=== PATIENT | female | born 1970 ===

== ENCOUNTER 2025-03-06 09:50 | Inpatient (IN) | payer OTHER ==
[~2025-03-06] VITALS: Ht 172.7 cm; Wt 61.8 kg
[2025-03-06 12:22] VITALS: BP 97/69
[2025-03-06 12:47] VITALS: BP 97/69
--- NOTE | 2025-03-06 13:29 | NUR ---
ADMIT PT DENIES SI, HI, TACTILE HALLUCINATIONS. ENDORSES A SUICIDE ATTEMPT "LONG TIME AGO" WHERE PT ROLLED OFF THE [place], BUT SURVIVED THE ATTEMPT AND BROKE HER HAND. PT ENDORSES FEELING HOPELESS AND ANHEDONIA. PT ENDORSES AUDITORY AND VISUAL HALLUCINATIONS, DESCRIBES THE VISUAL "I SEE FACES" AND AUDITORY HALLUCINATIONS IS "OBAMA, HE TELLS ME THINGS FROM WHEN I WAS YOUNGER. THEY'RE NICE". DENIES COMMAND HALLUCINATIONS. PT STATES SHE HAS NOT TAKEN HER MEDICATIONS FOR "A MONTH". PT INITIALLY DENIES HX OF ALCOHOLISM TILL MENTIONING IT WAS IN HER CHART AND DENIES METHAMPHETAMINE USE. PT IS DISTRACTIBLE, BUT REDIRECTIBLE. NO OTHER ACUTE EVENTS AT THIS TIME.
--- NOTE | 2025-03-06 14:10 | NUR ---
ASSUMED CARE OF PATIENT FROM IVANNA ZAMARRIPA. PT RESTING IN HER ROOM ON HER BED, APPEARS TO BE SLEEPING.
[2025-03-06] MEDS ORDERED: Polyethylene Glycol 3350 17 gm PO PRN (15:45)
[2025-03-06] MEDS ORDERED: Aluminum Hydroxide 320MG/5ML 473 ML PO PRN (15:50)
[2025-03-06] MEDS ORDERED: FLU VACC TS2025-26(6MOS UP)/PF 45 MCG/0.5 ML SYRINGE IM SCH (15:50)
[2025-03-06] MEDS ORDERED: Ondansetron 4 MG SoluTab MM PRN (15:55)
--- NOTE | 2025-03-06 18:08 | NUR ---
PT ATTENDED DINNER AND RETURNED TO HER ROOM. NO ACUTE CHANGES TO NOTE FROM PREVIOUS PALEOLOGY TEACHER NOTE. MONITORED WITH Q 15 MIN CHECKS FOR SAFETY PER UNIT PROTCOL.
[2025-03-06 20:00] VITALS: BP 115/71
--- NOTE | 2025-03-06 20:24 | NUR ---
MASS SCORE FOR PRN: PATIENT C/O ANXIETY EVIDENCED BY 3 ON MASS SCORE, STATED "TODAY HAS BEEN HARD". SHE REQUESTED AND WAS GIVEN VISTARIL. CONTINUING TO MONITOR FOR EFFECTIVENESS.
--- NOTE | 2025-03-06 21:25 | NUR ---
PRN GIVEN: PATIENT REQUESTED AND WAS GIVEN A SECOND TRAZODONE AT 6 FOR C/O FIRST TRAZODONE NOT EFFECTIVE/INSOMNIA. CONTINUING TO MONITOR FOR EFFECTIVENESS.
--- NOTE | 2025-03-07 00:32 | NUR ---
PRN MEDICATION ADMINISTRATION: PATIENT CAME TO MEDICATION WINDOW AT 0023 C/O BACK AND NECK PAIN 10/03. SHE REQUESTED AND WAS GIVEN TYLENOL. CONTINUING TO MONITOR FOR EFFECTIVENESS.
--- NOTE | 2025-03-07 02:14 | NUR ---
MASS SCORE FOR PRN ADMINISTRATION: PATIENT GOT UP AND REQUESTED A VISTARIL FOR "ANXIETY". MASS SCORE OF 1. PATIENT WAS GIVEN VISTARIL 50 MG PO PRN AT 2009. CONTINUING TO MONITOR FOR EFFECTIVENESS.
--- NOTE | 2025-03-07 04:18 | NUR ---
SHIFT SUMMARY: PATIENT IS A 54 YEAR OLD FEMALE ADMITTED TO THE [facility] ON 03/06/25 FROM [facility] FOR A DIAGNOSIS OF PSYCHOSIS. SHE PRESENTS FAIRLY GROOMED, A AND O X4, SPEAKS IN A MODERATE TONE OF VOICE AND MAKES APPROPRIATE EYE CONTACT. SHE DESCRIBED HER MOOD "ANXIOUS". SHE DENIED SUICIDAL IDEATION, THOUGHTS OF SELF HARMING AND A/V/T HALLUCINATIONS. SHE ADMITTED TO "ANXIETY, IT'S BEEN A HARD DAY". SHE WAS LYING IN BED RESTING, BUT DID GET UP FOR SNACK AND WRAP UP GROUP. SHE REQUESTED TRAZODONE AND VISTARIL FOR INSOMNIA AND ANXIETY. THEY WERE GIVEN TOGETHER WITH DR PERMISSION. HER MASS SCORE WAS 3 AT THAT TIME. SHE WENT TO LIE DOWN BUT GOT UP AT 2116 AND REQUESTED A SECOND TRAZODONE, WHICH WAS GIVEN. SHE THEN RESTED UNTIL 0023, WHEN SHE REQUESTED TYLENOL FOR BACK AND NECK PAIN 10/03. SHE CONTINUED TO BE UP AND DOWN THROUGHOUT THE SHIFT, STATING, "I HAVEN'T SLEPT IN THREE WEEKS". SHE GOT UP AT 0210 AND REQUESTED VISTARIL, WHICH WAS GIVEN FOR A MASS SCORE OF 1. SHE GOT UP SHORTLY AFTER THAT AND REQUESTED ATIVAN FOR SLEEP. SHE WAS TOLD SHE DOES NOT HAVE AN ORDER AND WANTED THE DR TO COME OVER AND GIVE HER SOME. SHE WAS TOLD THAT THE DR WILL BE AVAILABLE TO TALK IN THE MORNING AND THAT HER REQUEST WOULD BE PASSED ON IN REPORT. SHE GOT UP AGAIN AND REQUESTED NICORETTE GUM. SHE WAS TOLD THAT SHE HAS THE PATCH AND CAN ONLY HAVE ONE OR THE OTHER, AND THAT THE ORDER CAN BE CHANGED SO SHE CAN HAVE THE GUM. SHE STATED THAT SHE DID NOT WANT TO GIVE UP GETTING THE PATCH AND "NEVER MIND". SHE CONTINUES TO BE MONITORED Q15 MINUTES FOR SAFETY.
[2025-03-07 07:36] LABS: CHOL/HDL RATIO 3.9; Cholesterol 162 mg/dL (50-200); HDL Cholesterol 42 mg/dL (>39); LDL/HDL RATIO 2.1; Low Density Lipoprotein Chol 89 mg/dL (0-110); Triglycerides 157 mg/dL (30-160); Very Low Density Lipoprot Chol 31 mg/dL (6-32)
[2025-03-07 08:05] VITALS: BP 97/66
[2025-03-07] MEDS ORDERED: Multivitamins 1 Tab PO SCH (09:00)
--- NOTE | 2025-03-07 09:43 | NUR ---
SHIFT ASSESSMENT: PT DENIED SI AND HI, SHE ENDORSED AUDITORY HALUCINATIONS, "THE EAGLES SONG...YOUR LYIN' EYES...KEEPS PLAYING IN MY HEAD." PT REPORTED ANXIETY 7/10w, "PROBABLY BECAUSE I DIDN'T SLEEP." SHE REPORTED PAIN TO HER NECK AND BACK 4/10w. SHE DESCRIBED HER MOOD , "I'M OK." HER GOALS ARE: "TO GAIN CONTROL OF MY LIFE, REGULATE MY SLEEP AND STOP THE RINGING IN MY EARS.. PT HAS BEEN ACTIVE IN THE PT MILIEU AND GROUPS.
--- NOTE | 2025-03-08 01:15 | NUR ---
PRN NOTE. PT AWOKE AT 0100 AND REQUESTED PRN TRAZODONE. PT WAS GIVEN MELATONIN AT BED TIME AND WAS ABLE TO SLEEP A FEW HOURS. TRAZODONE GIVEN WITH EDUCATION AND TOLD THAT ANOTHER DOSE OF MED WOULD NOT BE GIVEN THIS WAS THE LATEST THAT THE MED COULD BE GIVEN. PT VERBALIZED WITH "OK" AND WENT TO BED. WILL MONITOR FOR EFFECTIVENESS OF PRN GIVEN.
--- NOTE | 2025-03-08 01:47 | NUR ---
PT APPEARS TO BE SLEEPING AT THIS TIME. EVEN RESPIRATIONS WITH RISE AND FALL OF CHEST. WILL CONTINUE Q 15 MIN CHECKS ON PT.
--- NOTE | 2025-03-08 04:59 | NUR ---
SHIFT SUMMARY:. PT A/O X4. DENIES SI, HI AND AVTH. ON PREVIOUS SHIFT SHE HAD AUDITORY HALLCINATIONS, BUT SHE HAS RINGING IN HER EARS AT THIS TIME, "I JUST WANT THE RINGING TO STOP." AXIETY LEVEL 9/10. OFFERED MEDICATION TO HELP HER,BUT SHE DECLINED. MOOD " I'M OK" AFFECT FLAT. WENT TO GROUP AND SNACK TONIGHT, PT REQUESTED MELATONIN FOR SLEEP TONIGHT, PT WOKE UP AND THEN REQUESTED TRAZODONE. THIS WAS AT 0100. TRAZODONE GIVEN ON REQUEST, PT WENT BACK TO BED AND HAS SLEPT WELL WITH THE AIDE OF THE MEDICATION. WILL CONTINUE TO MONITOR Q 15 MIN FOR WELLNESS AND SAFETY.
--- NOTE | 2025-03-08 17:45 | NUR ---
SHIFT SUMMARY PT DENIES SI, HI, VTH. ENDORSES AUDITORY HALLUCINATIONS "STATIC IN MY RIGHT EAR". ENDORSES FEELING "GOOD" D/T GETTING SLEEP. PT ATE MEALS, BUT OTHERWISE SLEPT/RESTED QUIETLY T/O DAY, DID NOT INTERACT W/ PEERS, BUT MADE A JOKE W/ THIS RN DURING ASSESSMENT. NO ACUTE EVENTS.
[2025-03-08 19:11] VITALS: BP 104/70
--- NOTE | 2025-03-08 21:38 | NUR ---
DR TRUONG CALLED AND CHECKED ON PT. HE WILL START HER ON ABILIFY TONIGHT. PT REQUESTED TRAZADONE AND MELATONIN FOR SLEEP. TRAZODONE GIVE EARLIER AND THEN PT CAME TO AT THAT IT ISN'T WORKING AND REQUESTED THE MELATONIN. WILL CONTINUE TO MONITOR Q 15 MIN FOR SAFETY AND WELLNESS.
--- NOTE | 2025-03-09 03:55 | NUR ---
PT AWAKENED AND CAME TO GET VISTARIL FOR COMPLAINT OF ANXIOUSNESS AND RESTLESSNESS. GIVEN NEDICATION, EDUCATED ON MEDICATION WITH VERBAL RETURN OF " I KNOW". PT RETURNED BACK TO BED. WILL CONTINUE TO MONITOR Q 15 MIN FOR WELLNESS AND SAFETY.
--- NOTE | 2025-03-09 04:01 | NUR ---
SHIFT SUMMARY: PT A/O X4. DENIES SI HI AND AVTH. MOOD QUITE AND "OK" PER PT. AND AFFECT FLAT. VOICE LOW IN TONE. PT MORE CALM AND DID OPEN UP MORE ON HER INTERVIEW. STATES SHE IS TIRED AND FEELS BETTER TONIGHT. REFUSED TO COME OUT TO GROUP AND SNACK TONIGHT. ANXIETY 10/03. REQUESTED TRAZODONE FOR BED TIME SLEEP AIDE. HAS BEEN IN BED THIS WHOLE SHIFT OTHER THAN FOR MEDS. WILL CONTINUE TO MONITOR Q 15 MIN FOR WELLNESS AND SAFETY.
[2025-03-09 09:26] VITALS: BP 99/65
--- NOTE | 2025-03-09 16:29 | NUR ---
SHIFT SUMMARY NO ACUTE EVENTS TODAY. PT DENIES SI, HI, VTH. ENDORSES AUDITORY HALLUCINATIONS, BUT STATES THEY ARE "BETTER THAN BEFORE" AND ONLY HEARS STATIC IN THE RIGHT EAR. PT ENDORSES MOOD BEING "BETTER" D/T CONTINUING TO GET GOOD SLEEP. WATCHED TV IN GROUP ROOM THIS AM, BUT OTHERWISE HAS SLEPT/RESTED QUIETLY OUTSIDE OF MEALS.
[2025-03-09 19:28] VITALS: BP 106/65
--- NOTE | 2025-03-10 05:37 | NUR ---
SHIFT SUMMARY Pt is A&O, calm, cooperative, polite, appropriately dressed, eye contact is appropriate. Pt stated that her mood is "okay," affect euthymic. Pt denies SI, HI, visual, and tactile hallucinations; she endorses auditory hallucination of "buzzing" in her right ear. Pt denies current pain or other medical issues. Pt presents much brighter in affect today and has engaged in full conversations with this RN and other staff members during the evening. Pt was present on the milieu during the evening. She requested PRN trazodone for sleep prior to retiring. Pt approached the nurse station at about 2045 and requested PRn melatonin, as she was still awake after taking trazodone. She asked for a second trazodone at about 0215 as well as a PRN hydroxyzine for MASS score 2. Staff continues to monitor q15m for safety and wellness.
[2025-03-10 08:10] VITALS: BP 91/72
--- NOTE | 2025-03-10 17:18 | NUR ---
SHIFT SUMMARY: PT IS ALERT, ORIENTED AND COOPERATIVE WITH CARE. SHE APPEARS FAIRLY WELL GROOMED, HAS APPROPRIATE EYE CONTACT AND A EUTHYMIC AFFECT. SHE DENIES SI AND HI. STATES THAT SHE IS NOT CURRENTLY HAVING VISUAL HALLUCINATIONS BUT STATES HISTORY OF. STATES THAT SHE HAS "BUZZING" THAT IS "ALWAYS THERE". SHE STATES THAT SHE SLEPT "OK" UNTIL 0200 AND HAS BEEN AWAKE SINCE. REPORTS 7/10 ANXIETY AND REQUESTED VISTARIL. SHE WAS MEDICATED PER EMAR FOR MASS SCORE OF 3. SHE REPORTED RELIEF FROM THE ANXIETY. SHE WAS ACTIVE ON THE UNIT, ATTENDED GROUPS AND MEALS. SHE SPENT TIME RESTING IN HER ROOM AND WATCHING TV IN THE DAY ROOM WITH PEERS AND STAFF.
[2025-03-10 20:51] VITALS: BP 107/69
--- NOTE | 2025-03-11 05:20 | NUR ---
SHIFT SUMMARY Pt is A&O, calm, cooperative, polite, appropriately dressed, eye contact is appropriate. Pt stated that her mood is "okay," affect constricted. Pt denies SI, HI, visual, and tactile hallucinations; she continues to endorse auditory hallucination of buzzing in her right ear. Pt denies current pain or other medical issues. Pt spent most of the evening resting in her room, but came out for snack and meds. She requested PRN melatonin at 1999 for sleep prior to retiring to her room. At 2044 pt requested PRN trazodone. Pt remained in her room for the rest of the shift. At Staff continues to monitor q15m for safety and wellness.
[2025-03-11 07:40] VITALS: BP 94/64
--- NOTE | 2025-03-11 17:24 | NUR ---
SHIFT ASSESSMENT PT IS AA&O TO PERSON, PLACE, SITUATION AND TIME. SHE IS COOPERATIVE WITH CARE. PT IS FRIENDLY AND ANSWERS QUESTIONS APPROPRIATELY. EYE CONTACT IS LIMITED. HYGEINE IS ADEQUATE. APPETITE IS GOOD. SHE IS COMPLIANT WITH MEDICATIONS AND DENIES ANY ADVERSE EFFECTS. SHE DENIES SI, AVH. SHE HAS BEEN UP FOR GROUPS AND MEALS. SHE REPORTS HER MOOD GOOD, AFFECT IS GAURDED. SHE REPORTS SHE SLEPT OKAY BUT WOKE UP A "COUPLE TIMES" SHE IS INTERACTING WELL WITH PEERS AND STAFF. NO PRN MEDICATION ADMINISTERED THIS SHIFT. WILL CONTINUE POC
[2025-03-11 19:55] VITALS: BP 116/82
--- NOTE | 2025-03-12 04:24 | NUR ---
SHIFT SUMMARY PT IS A&OX4. SHE IS PLEASANT AND COOPERATIVE WITH CARE. SHE REPORTS HER MOOD "OK". SHE IS CALM AND ENGAGED WITH CONVERSATION. DENIES ANY SI, HI OR VTH. SHE REPORTS AUDITORY HALLUCINATIONS, STATES "I HEAR STATIC". SHE WATCHED TV IN THE GROUP ROOM, ATTENDED WRAP UP GROUP AND HAD EVENING SNACK. SHE RECEIVED PRN MELATONIN AND TRAZODONE AND WENT TO BED SHORTLY AFTER SNACK. SHE HAS REMAINED IN BED THROUGHOUT THE NIGHT. Q15 MINUTE CHECKS TO CONTINUE PER PT SAFETY.
[2025-03-12 07:37] VITALS: BP 96/66
--- NOTE | 2025-03-12 18:10 | NUR ---
SHIFT SUMMARY PT A/O X4; PLEASANT AND COOPERATIVE WITH CARE. SHE DENIES SI, HI, AVTH. PT SAID THAT SHE WAS HEARING STATIC IN HER EARS YESTERDAY BUT IT IS GONE TODAY. SHE DESCRIBES HER MOOD "GOOD" AND HER AFFECT IS BLUNTED. SHE EXPRESSED CONCERN ABOUT HAVING DIFFICULTY SLEEPING. SHE ATTENDED ALL GROUPS AND MEALS THIS SHIFT. SHE CONTINUES TO BE MONITORED Q15 PER UNIT PROTOCOL FOR SAFETY AND WELLNESS.
[2025-03-12 19:41] VITALS: BP 103/63
--- NOTE | 2025-03-13 04:36 | NUR ---
SHIFT SUMMARY PT IS A&OX4. SHE IS CALM, COOPERATIVE AND ENGAGED WITH CONVERSATION. MAKES APPROPRIATE EYE CONTACT. REPORTS HER MOOD "GOOD". AFFECT IS CONGRUENT TO STATED MOOD. DENIES ANY SI, HI OR AVTH. SHE ATTENDED WRAP UP GROUP AND HAD EVENING SNACK. SHE WAS COMPLIANT WITH SCHEDULED MEDS. SHE REQUESTED AND RECEIVED IBUPROFEN FOR ARTHRITIS PAIN IN BILATERAL HIPS, RATED AT 6/10 WITH GOOD AFFECT. PT ALSO RECEIVED PRN MELATONIN TO ASSIST WITH SLEEP. SHE WENT TO BED AFTER SNACK AND HAS REMAINED IN BED THROUGHOUT THE NIGHT. Q15 MINUTE CHECKS TO CONTINUE PER PT SAFETY.
[2025-03-13 07:57] VITALS: BP 103/70
--- NOTE | 2025-03-13 16:58 | NUR ---
PATIENT WOKE AT 0700. SHE STATES THAT SHE HAD A GOOD NIGHT SLEEP. THE INCREASE TRAZODONE WAS EFFECTIVE AND SHE DENIES SIDE EFFECTS. PATIENT HAS A DISHEVELED APPEARANCE BUT IS CLEAN. SHE HOLD LOGICAL CONVERSATION AND IS DENYING ALL HALLUCINATIONS. ShE DENIES SI, HI. PATIENT HAS BEEN PARTICIPATING ON THE UNIT AND IN GROUPS WITH PEERS. SHE HAS NO CONCERNS AT THIS TIME.
[2025-03-13 19:40] VITALS: BP 119/66
--- NOTE | 2025-03-14 04:17 | NUR ---
SHIFT SUMMARY PT WITH MESSY, UNWASHED HAIR. PT PACING THE HALLS AND SPENT TIME IN MILIEU WATCHING TV. SHE IS CALM AND COOPERATIVE. MAKES APPROPRIATE EYE CONTACT. REPORTS HER MOOD "GOOD". SHE HAS A BLUNTED AND FLAT AFFECT. DENIES ANY SI, HI, INTRUSIVE THOUGHTS OR ANY HALLUCINATIONS. NO INTERNAL STIMULI NOTED. SHE HAD EVENING SNACK, ATTENDED WRAP UP GROUP AND WAS COMPLIANT WITH MEDS. SHE REQUESTED AND RECEIVED PRN IBUPROFEN FOR 7/10 BILATERAL HIP PAIN AND MELATONIN TO ASSIST WITH SLEEPING. SHE WENT TO BED AFTER RECEIVING MEDS AND HAS APPEARED TO SLEEP WELL WITH RESPIRATIONS CONFIRMED. Q15 MINUTE CHECKS TO CONTINUE PER PT SAFETY.
[2025-03-14 08:36] VITALS: BP 102/65
--- NOTE | 2025-03-14 16:50 | NUR ---
Patient is alert and orientated. Today, she participated during groups and was social with Peers. She believes medications are working as she was ablet o distinguish that her nightmare about conspiracy was a dream and not real. She denies Auditory, visual and tactile hallucination. She is not having any thoughts of suicide or self harm. Anxiety appears at times and she used a PRN hydroxyzine this afternoon to aleveate the anxiety. She requested a number for the [facility] so she could inquire about warrants. She was provided the number, however will have to call Monday as they are closed for the weekend. There is not a set discharge date yet, but the provider believes she will dc sometime next week.
[2025-03-14 20:17] VITALS: BP 107/66
--- NOTE | 2025-03-15 04:12 | NUR ---
SHIFT SUMMARY PATIENT UP IN MILIEU ALTERNATING FREQUENTLY WITH WATCHING MOVIE AND PACING IN THE BECK. ABLE TO HOLD CLEAR AND CONCISE CONVERSATION. VERBALIZED FEELING ANXIOUS, HYDROXYZINE GIVEN FOR MASS 3. DENIES SI, HI, OR AVTH. AT 2035 IBUPROFEN GIVEN FOR 8/10 HIP PAIN, WITH GOOD RESULTS. MELATONIN GIVEN WITH SCHEDULED DOSE OF TRAZODONE FOR SLEEP. PATIENT SLEEPING WELL T/O NIGHT RESP EVEN AND UNLABORED. CONTINUE TO MONITOR Q15MIN
[2025-03-15 08:41] VITALS: BP 108/67
--- NOTE | 2025-03-15 17:34 | NUR ---
SHIFT SUMMARY: PT HAS A RING IN PLACE ON HER L 4TH FINGER. PT IS ALERT, ORIENTED AND COOPERATIVE WITH CARE. SHE DENIES SI, HI AND AVH. STATES THAT SHE SLEPT WELL LAST NIGHT AND HER MOOD IS "GOOD". SHE APPEARS WELL GROOMED AND HAS APPROPRIATE EYE CONTACT. SHE IS COMPLIANT WITH MEDICATIONS AND ENGAGED IN CONVERSATION. SHE C/O INCREASED ANXIETY OF 7/10 IN THE AM AFTER BREAKFAST. SHE WAS MEDICATED WITH PRN VISTARIL PER EMAR FOR MASS SCORE OF 3 AND REPORTED GOOD RELIEF SYMPTOMS SHE WAS MEDICATED FOR C/O 7/10 BILATERAL KNEE PAIN AND WAS MEDICATED WITH IBUPROFEN PRN PER EMAR. SHE REPORTED RELIEF FROM THE PAIN UPON REASSESSMENT. PT C/O FEELING "JITTERY" "RESTLESS" AND "UNABLE TO SIT STILL". REPEAT AIMS ASSESSMENT COMPLETED AND REMAINS NEGATIVE. SHE LATER REPORTED THAT THEY SYMPTOMS HAD RESOLVED, SHE WOULD LIKE TO WAIT TO TAKE THE INJECTION UNTIL TOMORROW AFTER SHE SPEAKS WITH THE DOCTOR. DR. FUNG HAS BEEN UPDATED ON INITIAL C/O AND RESOLUTION OF SYMPTOMS. SHE C/O INCREASED ANXIETY IN THE AFTERNOON OF 07/04 AND WAS MEDICATED WITH VISTARIL PRN PER EMAR FOR MASS SCORE OF 3. PT WAS PRESENT ON THE UNIT, ATTENDED MEALS AND GROUPS. SHE SPENT TIME WALKING IN THE HALLS AND IN THE DAY ROOM WATCHING TV.
[2025-03-15 19:57] VITALS: BP 93/62
--- NOTE | 2025-03-16 05:15 | NUR ---
SHIFT SUMMARY 54 YEAR-OLD FEMALE PRESENTS WELL GROOMED. SHE IS ALERT AND ORIENTED. SHE SPEAKS IN A CLEAR VOICE AND IN AN APPROPRIATE VOLUME. SHE IS ABLE TO MAKE AND KEEP EYE CONTACT DURING CONVERSATIONS. AT THE TIME OF HER ASSESSMENT, SHE DESCRIBED HER MOOD "CALM". SHE ALSO DENIED SI, HI, AND AVTH AT THAT TIME. SHE ATTENDED SNACK AND DAY ROOM. SHE WAS COMPLIANT WITH CARE AND MEDICATION ADMINISTRATION. SHE RECEIVED THE FOLLOWING PRN MEDICATIONS: MELATONIN 3MG FOR SLEEP AT 2044 AND IBUPROFEN 600 MG FOR 8/10 BILATERAL KNEE PAIN. SHE CONTINUES TO BE MONITORED EVERY 15 MINUTES FOR WELLNESS AND SAFETY.
--- NOTE | 2025-03-16 05:15 | NUR ---
PRN NOTE PATIENT RECEIVED THE FOLLOWING PRN MEDICATIONS DURING PRECISION PRINTING WORKER: MELATONIN 3MG FOR SLEEP AT 4 AND IBUPROFEN 600 MG FOR 8/10 BILATERAL KNEE PAIN.
[2025-03-16 08:54] VITALS: BP 103/64
[2025-03-16] MEDS ORDERED: ARIPiprazole 300 MG SUSER.SYR IM SCH (12:00)
--- NOTE | 2025-03-16 16:28 | NUR ---
SHIFT SUMMARY: PT HAS A RING IN PLACE ON HER L 4TH FINGER. PT IS ALERT, ORIENTED AND COOPERATIVE WITH CARE. SHE DENIES SI, HI AND AVH. SHE APPEARS WELL GROOMED, HAS APPROPRIATE EYE CONTACT AND A EUTHYMIC AFFECT. SHE IS COMPLIANT WITH MEDICATIONS AND ENGAGED IN CONVERSATION. STATES THAT SHE SLEPT WELL UNTIL AROUND 0430. C/O ANXIETY THAT SHE RATES AT 8/10. PROVIDED WITH PRN VISTARIL PER EMAR FOR MASS SCORE OF 3. IN THE AFTERNOON SHE C/O BILATERAL HIP PAIN AND WAS MEDICATED WITH IBUPROFEN PRN PER EMAR WHICH SHE REPORTED GOOD RELIEF FROM AFTER. PT WAS PRESENT FOR MEALS AND GROUP TODAY. WAS ACTIVE IN THE MILIEU, WALKING IN THE HALLS AND WATCHING TV IN THE DAY ROOM.
[2025-03-16 20:19] VITALS: BP 104/64
--- NOTE | 2025-03-17 05:01 | NUR ---
SHIFT SUMMARY 54 YEAR-OLD FEMALE PRESENTS WELL GROOMED. SHE IS ALERT AND ORIENTED. SHE SPEAKS IN A CLEAR VOICE AND IN AN APPROPRIATE VOLUME. SHE IS ABLE TO MAKE AND KEEP EYE CONTACT DURING CONVERSATIONS. AT THE TIME OF HER ASSESSMENT, SHE DESCRIBED HER MOOD "ANXIOUS MAINLY WHEN I THINK ABOUT DISCHARGING." SHE ALSO DENIED SI, HI, AND AVTH AT THAT TIME. SHE ATTENDED SNACK AND DAY ROOM. SHE WAS COMPLIANT WITH CARE AND MEDICATION ADMINISTRATION. SHE RECEIVED THE FOLLOWING PRN MEDICATIONS: MELATONIN 3MG FOR SLEEP AT 2045 AND IBUPROFEN 600 MG FOR 7/10 HIP PAIN. SHE ALSO RECEIVED HER ANNUAL FLU VACCINE. SHE CONTINUES TO BE MONITORED EVERY 15 MINUTES FOR WELLNESS AND SAFETY.
--- NOTE | 2025-03-17 05:03 | NUR ---
PRN NOTE PATIENT RECEIVED THE FOLLOWING PRN MEDICATIONS DURING FIELD CROPS HARVEST MACHINE OPERATOR: MELATONIN 3MG FOR SLEEP AT 6 AND IBUPROFEN 600 MG FOR 7/10 HIP PAIN.
[2025-03-17 08:58] VITALS: BP 98/69
--- NOTE | 2025-03-17 15:50 | NUR ---
NURSE NOTE PT PACING THE HALLWAYS AND FEELS SHE IS GETTING ANXIOUS. MASS=1, PT REQUESTED A PRN HYDROXYZINE. PT MEDICATED FOR ANXIETY.
--- NOTE | 2025-03-17 18:24 | NUR ---
SHIFT SUMMARY PT WAS CALM, COOPERATIVE, AND EUTHYMIC THIS SHIFT. DENIES AVTH. SHE WAS MEDICATION COMPLIANT. PT WAS GIVEN ONE HYDROXYZINE PRN FOR C/O ANXIETY WITH A MASS=1. SHE JOINED GROUPS AND WAS ACTIVE IN THE GROUP ROOM WHEN SHE WAS NOT PACING THE HALLWAYS. PT DID NOT HAVE ANY ACUTE BEHAVIOR TO REPORT.
[2025-03-17 20:16] VITALS: BP 111/73
--- NOTE | 2025-03-17 23:23 | NUR ---
MID SHIFT SUMMARY: PT HAD UNEVENTFUL EVENING. PARTICIPATED IN SNACK AND THEN WENT TO BED. HAS BEEN SLEEPING WITHOUT INTERRUPTION SINCE THEN. DURING ASSESSMENT SHE SPOKE OF FEELING RELIEF TODAY WHEN SHE "FOUND OUT I WASN'T FACING A FELONY CHARGE." SHE STATES SHE WAS NOT GETTING ANY SLEEP PREVIOUSLY AND "ACTED OUT BY BEING STUPID" AND "GOT A BUNCH OF CHARGES." DENIES ANY SI, AH, VH. COOPERATIVE WITH STAFF, ENGAGED IN PROCESS.
--- NOTE | 2025-03-18 00:12 | NUR ---
ASSUMPTION OF CARE ASSUMED CARE OF PATIENT FROM MARILOU BHAKTA AT MIDNIGHT. SHE IS CURRENTLY RESTING QUIETLY IN HER BED. NO SIGNS OF ACUTE DISTRESS NOTED. SHE RECEIVED TO FOLLOWING PRN MEDICATIONS PRIOR IN THE SHIFT: IBUPROFEN 600MG FOR PAIN AT 2020, MELATONIN 3MG FOR SLEEP AT 2020. CONTINUES TO BE MONITORED EVERY 15 MINUTES FOR WELLNESS AND SAFETY.
--- NOTE | 2025-03-18 04:30 | NUR ---
END OF SHIFT SUMMARY PATIENT HAS SLEPT SINCE THIS DEPARTMENT HELPER ASSUMED CARE AT MIDNIGHT. NO PRN MEDICATIONS WERE UTILIZED. PATIENT DOES NOT SEEM TO BE IN ANY ACUTE DISTRESS. CONTINUES TO BE MONITORED EVERY 15 MINUTES FOR WELLNESS AND SAFETY.
[2025-03-18 07:27] VITALS: BP 108/58
--- NOTE | 2025-03-18 17:32 | NUR ---
PATIENT IS ALERT AND ORIENTATED. SHE HAS CLEAR SPEECH AND A GROOMED APPEARANCE. PATIENT DENIES SUICIDAL THOUGHTS. SHE DENIES ALL HALLUCINATIONS AT THIS TIME. sHE STATES THAT ONCE IN A WHILE, WHEN ANXIETY INCREASES SHE WILL HERE STATIC- IT DOESN'T LAST LONG HOWEVER. PATIENTS COGNITION APPEARS TO BE BASED IN REALITY. SHE IS AWARE OF HER LEGALS AND WHEN SPEAKING OF FUTURE COURT DATES, SPEECH BECOMES QUICK AND EYES WIDE. SHE IS ANTICIPATING NEXT WEEK FOR DISCHARGE.
[2025-03-18 19:15] VITALS: BP 108/69
--- NOTE | 2025-03-19 04:25 | NUR ---
SHIFT SUMMARY PT IS A 54-Y/O FEMALE WHO PRESENTS ADEQUATELY GROOMED. SHE IS ALERT AND ORIENTED. SHE SPEAKS IN A CLEAR VOICE AND APPROPRIATE VOLUME. SHE MAKES APPROPRIATE EYE CONTACT. REPORTS HER MOOD "I'M OKAY". AFFECT IS CONGRUENT TO STATED MOOD. SHE DENIES ANY SI, HI OR AVTH. WHEN QUESTIONED REGARDING IF SHE IS HEARING ANY MORE STATIC, SHE REPORTS SHE THINKS IT IS JUST TINNITUS. SHE WAS PRESENT IN MILIEU, ATTENDED WRAP UP GROUP AND HAD EVENING SNACK. SHE WAS COMPLIANT WITH MEDICATIONS AND REQUESTED AND RECEIVED PRN MELATONIN TO ASSIST WITH SLEEP AND IBUPROFEN FOR REPORTED 6/10 BILATERAL HIP PAIN. PT HAS BEEN IN BED THROUGHOUT THE NIGHT. Q15 MINUTE CHECKS TO CONTIUE PER PT SAFETY.
[2025-03-19 09:23] VITALS: BP 102/59
--- NOTE | 2025-03-19 16:25 | NUR ---
Patient has clear speech. She is alert and orientated, denying thoughts of suicide/homicide. She states that she is not having any hallucinations. She reports a ringing in her ears on occasion. Patient is looking forward to discharge next week. She used a PRN hydroxyzine earlier in the shift, for anxiety that comes from being in a group. She has no other concerns.
[2025-03-19 20:12] VITALS: BP 103/65
--- NOTE | 2025-03-20 04:24 | NUR ---
SHIFT SUMMARY PT IS A 54-Y/O FEMALE WHO PRESENTS ADEQUATELY GROOMED. SHE IS ALERT AND ORIENTED, CALM AND ENGAGED. SPEECH IS FLUENT WITH MODERATE VOLUME. SHE MAKES APPROPRIATE EYE CONTACT. REPORTS HER MOOD "MELLOW". AFFECT IS EUTHYMIC. SHE DENIES ANY SI, HI OR AVTH. DENIES ANY CURRENT RINGING IN HER EARS. SHE WAS PRESENT IN MILIEU, HAD EVENING SNACK AND WAS COMPLIANT WITH MEDICATIONS. SHE REQUESTED AND RECEIVED PRN MELATONIN TO ASSIST WITH SLEEP AND IBUPROFEN FOR REPORTED 6/10 BILATERAL HIP PAIN. SHE HAS REMAINED IN BED THROUGHOUT THE NIGHT. Q15 MINUTE CHECKS TO CONTINUE PER PT SAFETY.
[2025-03-20 09:23] VITALS: BP 103/62
--- NOTE | 2025-03-20 17:15 | NUR ---
SHIFT SUMMARY PT PRESENTS ALERT AND ORIENTED WITH GOOD EYE CONTACT, CLEAR SPEECH WITH NORMAL TONE AND GOOD HYGIENE. SHE IS CALM, COOPERATIVE AND COMPLIANT WITH MEDICATION. ASKS APPROPRIATE QUESTIONS REGARDING MEDICATIONS. PT HAS DENIED ALL SI/HI/AVH. SHE SPENT A LOT OF TIME PACING THE HALLWAY WITH PEERS AND HAS BEEN VERY ENGAGED WITH THEM AND THE MILIEU SHE WENT OUTSIDE TO THE [place] WHEN IT WAS OPENED UP THIS AFTERNOON AND SHE AND PEERS THREW RUBBER BALLS AROUND, APPEARED TO HAVE FUN. PT HAS RECEIVED Q15 MINUTE VISUAL SAFETY CHECKS THROUGHOUT THIS SHIFT.
[2025-03-20 19:31] VITALS: BP 99/68
--- NOTE | 2025-03-20 23:59 | NUR ---
PT IS BRIGHT AND ANIMATED AT THE BEGINNING OF THE SHIFT, SHE IS SMILING AND TALKATIVE, SHARED THAT SHE MADE A PHONE CALL TO HER FAMILY, EXPRESSED HAPPINESS WITH THIS. PT MAKING GOALS AND PLANS, DISCUSSED DISCHARGE NEXT WEEK. SHE IS INTERACTIVE WITH THE MILIEU, WATCHING TV AND VISITING WITH STAFF AND PATIENTS. DENIES ANY SI/HI AVH. SHE REPORTS SHE DIDN'T SLEEP WELL LAST NIGHT, SHE IS HOPEFUL TONIGHT SHE CAN SLEEP BETTER, SHE REQUESTS NIGHT TIME MEDICATIONS AFTER SNACK, SHE ALSO REQUESTS MOTRIN FOR HIP PAIN AND MELATONIN FOR SLEEP, THIS WAS GIVEN, PT APPEARS TO BE RESTING AT THIS TIME, MEDICATION APPEARS TO HAVE BEEN EFFECTIVE.
--- NOTE | 2025-03-21 04:03 | NUR ---
Assumed care at 2400 from MARILOU Vences. Patient has been resting quietly with equal chest rise and fall. She did wake slightly when her roommate got out of bed early, but appeared to have gone back to sleep.
[2025-03-21 09:07] VITALS: BP 100/68
--- NOTE | 2025-03-21 17:08 | NUR ---
SHIFT SUMMARY TODAY, PT PRESENTS WITH GOOD HYGIENE, SHE IS ALERT AND ORIENTED WITH GOOD EYE CONTACT, CLEAR SPEECH WITH NORMAL TONE. SHE CONTINUES TO BE CALM AND COOPERATIVE, COMPLIANT WITH MEDICATION. PT HAS BEEN VERY ENGAGED WITH HER PEERS TODAY AND MILIEU INVOLVEMENT. APPROX 1100 PT APPROACHED RN STATION ASKING FOR VISTARIL, STATED 6/10 ANXIETY "I'M SPINNING IN THE HEAD", MASS SCORE OF 3. AT 1600 SHE REQUESTED SOMETHING MORE FOR HER "SPINNING HEAD". ZYPREXA GIVEN, MASS SCORE 4. SHE HAS DENIED SI/HI. THIS SPINNING HEAD SHE DECRIBES IS NOT VOICES. IT'S A BUZZING, SPINNING FEELING AND IS NEW TO THIS RN SINCE YESTERDAY'S SHIFT. SHE IS ACTIVELY PARTICIPATING IN MEALS/GROUPS. PT HAS CONTINUED TO RECEIVE Q15 MINUTE VISUAL SAFETY CHECKS THROUGHOUT THIS SHIFT.
[2025-03-21 20:42] VITALS: BP 111/68
--- NOTE | 2025-03-22 04:46 | NUR ---
PRN NOTE PATIENT RECEIVED THE FOLLOWING PRN MEDICATIONS DURING PIE FILLING MIXER: IBUPROFEN 600MG FOR 7/10 HIP PAIN AT 2052, MELATONIN 3MG FOR SLEEP AT 2052
--- NOTE | 2025-03-22 04:46 | NUR ---
SHIFT SUMMARY 54 YEAR-OLD FEMALE PRESENTS WELL GROOMED. SHE IS ALERT AND ORIENTED. SHE SPEAKS IN A CLEAR VOICE AND IN AN APPROPRIATE VOLUME. SHE IS ABLE TO MAKE AND KEEP EYE CONTACT DURING CONVERSATIONS. AT THE TIME OF HER ASSESSMENT, SHE DESCRIBED HER MOOD HOPEFUL . SHE ALSO DENIED SI, HI, AND AVTH AT THAT TIME. SHE ATTENDED SNACK AND DAY ROOM. SHE WAS COMPLIANT WITH CARE AND MEDICATION ADMINISTRATION. SHE RECEIVED THE FOLLOWING PRN MEDICATIONS: IBUPROFEN 600MG FOR 7/10 HIP PAIN AT 2052, MELATONIN 3MG FOR SLEEP AT 2052. SHE CONTINUES TO BE MONITORED EVERY 15 MINUTES FOR WELLNESS AND SAFETY.
[2025-03-22 08:14] VITALS: BP 97/77
--- NOTE | 2025-03-22 17:38 | NUR ---
SHIFT SUMMARY PT DENIES SI ,HI, VTH. ENDORSES "QUIET STATIC". PT STATES MOOD IS "GOOD" AND HAS BEEN SLEEPING "BETTER". PT ATTENDED GROUPS/MEALS. INTERACTING W/ OTHER PT'S AND STAFF. NO OTHER ACUTE EVENTS TODAY.
[2025-03-22 22:30] VITALS: BP 103/63
--- NOTE | 2025-03-23 06:16 | NUR ---
SHIFT SUMMARY Pt is A&O, calm, cooperative, polite, appropriately dressed, eye contact is appropriate. Pt stated that her mood is "pretty good," affect is constricted. Pt denies SI, HI, VH, TH. She endorses AH of "static, more like an electronic tinkle," but says it is easy to ignore. Pt endorses hip and knee pain 7/10w and requested PRN ibuprofen with her HS meds. During the interview she said that her dad is allowing her to move in with him after discharge and she is very happy about that. Pt was active on the milieu during the evening. Pt requested PRN melatonin with HS meds to help her sleep. Pt was up to nurse station at about 0435 and asked for PRN olanzapine for agitation; MASS-4. Staff continues to monitor q15m for safety and wellness.
[2025-03-23 08:47] VITALS: BP 80/56
[2025-03-23 08:50] VITALS: BP 92/62
--- NOTE | 2025-03-23 08:59 | NUR ---
UPDATE PT C/O OF DIZZINESS AND REQUIRED ASSISTANCE TO THE FLOOR BEFORE FALLING, DID NOT LOSE CONSCIOUSNESS. PT WAS DIAPHORETIC, PALLOROUS, AND HYPOTENSIVE. DR FUNG NOTIFIED W/ ORDERS FOR HOSPITALIST CONSULT. DR SHELTON NOTIFIED. PT STATED, "I FEEL FINE NOW" AFTER SECOND BLOOD PRESSURE CHECK PER KORTNEY ZAMARRIPA.
[2025-03-23] MEDS ORDERED: NS 1,000 ML IV SCH (09:30)
[2025-03-23 10:00] LABS: BASOPHILS ABSOLUTE AUTO 0.11 K/mm3 (0.00-0.23); BASOPHILS PERCENT AUTO 1 % (0-2); EOSINOPHILS ABSOLUTE AUTO 0.31 K/mm3 (0.00-0.68); EOSINOPHILS PERCENT AUTO 4 % (0-6); Hematocrit 38.9 % (33.0-51.0); Hemoglobin 13.0 g/dL (11.5-16.0); IMMATURE GRAN ABSOLUTE AUTO 0.02 K/mm3 (0.00-0.10); IMMATURE GRAN PERCENT AUTO 0 % (0-1); LYMPHOCYTES ABSOLUTE AUTO 2.43 K/mm3 (0.84-5.20); LYMPHOCYTES PERCENT AUTO 30 % (21-46); MONOCYTES ABSOLUTE AUTO 0.44 K/mm3 (0.16-1.47); MONOCYTES PERCENT AUTO 6 % (4-13); Mean Corpuscular HGB Conc 33.4 g/dL (31.5-36.5); Mean Corpuscular Volume 88 fL (80-100); NEUTROPHILS ABSOLUTE AUTO 4.70 K/mm3 (1.96-9.15); NEUTROPHILS PERCENT AUTO 59 % (41-73); NRBC ABSOLUTE 0.00 K/mm3 (0.00-0.02); NRBC Auto 0.0 /100 WBC (0.0-0.2); Platelet Count 305 K/mm3 (150-400); RDW Coefficient Variation 12.0 % (11.7-14.2); RDW Standard Deviation 39.2 fL (35.1-46.3)
[2025-03-23 10:27] LABS: Alanine Aminotransfer (ALT/SGP 23.0 U/L (12-78); Albumin, Blood 3.8 g/dL (3.4-5.0); Albumin/Globulin Ratio 1.2 (0.8-1.8); Anion Gap 9.0 mmol/L (3-11); Aspartate Aminotrans (AST/SGOT 11.0 U/L (12-37); Bilirubin, Total 0.8 mg/dL (0.1-1.0); Blood Urea Nitrogen 22.0 mg/dL (8-24); CO2, Blood 29.0 mmol/L (21-32); Calcium, Blood 9.4 mg/dL (8.5-10.1); Chloride, Blood 106.0 mmol/L (98-108); Creatinine, Blood 0.75 mg/dL (0.40-1.00); Globulin, Blood 3.3 g/dL (2.2-4.0); Glucose, Blood 202.0 mg/dL (70-99); Potassium, Blood 4.6 mmol/L (3.5-5.5); Sodium, Blood 139.0 mmol/L (136-145); Total Protein, Blood 7.1 g/dL (6.4-8.2)
[2025-03-23] MEDS ORDERED: ABILIFY MAINTE300 M1 IM (10:35)
[2025-03-23] MEDS ORDERED: ARIPIPRAZOLE OD15 MG PO (11:02)
[2025-03-23] MEDS ORDERED: TRAZ100 PO (11:03)
[2025-03-23 11:22] VITALS: BP 97/63
--- NOTE | 2025-03-23 17:40 | NUR ---
SHIFT SUMMARY NO ACUTE EVENTS SINCE THIS AM. PT DENIES SI, HI, VTH. CONTINUES TO ENDORSE "QUIET STATIC". PT DENIES ANY DIZZINESS THIS AM. PT ALSO STATED THAT THIS HAS HAPPENED TO HER BEFORE, "LIKE MAYBE ONCE A YEAR". PT STATED THAT SHE WOKE UP DIZZY AND "IT GOT WORSE" DURING MED PASS. PT HAS SINCE BEEN PACING HALLWAYS, ATTENDING GROUP/MEALS, AND WATCHING A MOVIE IN DAYROOM. NO OTHER ACUTE EVENTS.
[2025-03-23 19:25] VITALS: BP 109/65
--- NOTE | 2025-03-24 04:57 | NUR ---
SHIFT SUMMARY PATIENT UP IN [place] WATCHING MOVIE. CONVERSATION CLEAR AND CONCISE. PATIENT NO LONGER FEELING DIZZY. DENIES SI, HI, OR AVTH. WANTING TO KEEP NICOTINE PATCH IN PLACE T/O NIGHT. AFTER SNACK TAKING HS MEDICATIONS WITH MELATONIN FOR SLEEP AND IBUPROFEN FOR HIP PAIN 11/03 WITH GOOD RELIEF. APPEARS TO BE SLEEPING WELL T/O NIGHT RESP EVEN AND UNLABORED. CONTINUE TO MONITOR Q15MIN PRN MEDICATIONS GIVEN T/O NIGHT: MELATONIN, IBUPROFEN
[2025-03-24 08:55] VITALS: BP 102/67
--- NOTE | 2025-03-24 16:16 | NUR ---
SHIFT SUMMARY PT AxOx4. PLEASANT AND COOPERATIVE WITH CARE. PT REPORTS FEELING "GOOD" THIS MORNING, DENYING SI/HI AND AVTH. SHE IS OPTIMISTIC AND GOAL ORIENTED ABOUT FUTURE PLANNING AND REPORTS FEELING READY TO DC IN THE NEXT COUPLE OF DAYS. PT HAS BEEN FOLLOWING HER TREATMENT PLAN INCLUDING TAKING MEDICATIONS PRESCRIBED, ATTENDING [place] THERAPY GROUPS AND MINGLING APPROPRIATELY WITH PEERS/STAFF. CURRENT PLAN IS TO ANTICIPATE DC IN 1-2 DAYS. PT IS AWARE AND AGREEABLE TO PLAN. SHE IS CURRENTLY PACING THE HALLS WITH ANOTHER PATIENT. DENIES ANY NEEDS AT THIS TIME.
[2025-03-24 20:15] VITALS: BP 115/74
--- NOTE | 2025-03-25 04:22 | NUR ---
SHIFT SUMMARY PT IS A 54-Y/O FEMALE WHO PRESENTS ADEQUATELY GROOMED. SHE IS CALM AND ENGAGED. SPEECH IS FLUENT WITH MODERATE VOLUME. SHE MAKES APPROPRIATE EYE CONTACT. REPORTS HER MOOD "UP BEAT". AFFECT IS CONGRUENT TO STATED MOOD. SHE STATES SHE FEELS READY FOR DISCHARGE. SHE DENIES ANY SI, HI OR AVTH. SHE WAS PRESENT IN [place], HAD EVENING SNACK AND WAS COMPLIANT WITH MEDICATIONS. SHE REQUESTED AND RECEIVED PRN MELATONIN TO ASSIST WITH SLEEP AND IBUPROFEN FOR REPORTED 6/10 BILATERAL HIP PAIN. PT HAS REMAINED IN BED THROUGHOUT THE NIGHT. Q15 MINUTE CHECKS TO CONTINUE PER PT SAFETY.
[2025-03-25 08:07] VITALS: BP 104/70
--- NOTE | 2025-03-25 16:50 | NUR ---
SHIFT SUMMARY PT A/O X4; PLEASANT AND COOPERATIVE WITH CARE. SHE DENIES SI, HI, AVTH. PT'S AFFECT IS CONGRUENT TO STATED MOOD AND SHE DESCRIBES HER MOOD "EXCITED" BECAUSE SHE GETS TO DISCHARGE SOON. SHE IS TO DISCHARGE HOME TOMORROW. SHE ATTENDED ALL GROUPS AND MEALS THIS SHIFT.
[2025-03-25 20:14] VITALS: BP 108/69
--- NOTE | 2025-03-26 04:59 | NUR ---
SHIFT SUMMARY PT IS A 54-Y/O FEMALE WHO PRESENTS ADEQUATELY GROOMED. SHE IS A&OX4. SHE IS CALM AND ENGAGED. SPEECH IS FLUENT WITH MODERATE VOLUME. SHE MAKES APPROPRIATE EYE CONTACT. REPORTS HER MOOD "PRETTY GOOD". AFFECT IS CONGRUENT TO STATED MOOD. SHE DENIES ANY SI, HI OR AVTH. SHE STATES SHE IS HAPPY THAT SHE IS GOING TO HER DADS. SHE WAS PRESENT IN [place], HAD EVENING SNACK AND WAS COMPLIANT WITH MEDICATIONS. SHE REQUESTED AND RECEIVED PRN MELATONIN TO ASSIST WITH SLEEP AND IBUPROFEN FOR REPORTED 6/10 BILATERAL HIP PAIN. PT HAS REMAINED IN BED THROUGHOUT THE NIGHT. Q15 MINUTE CHECKS TO CONTINUE PER PT SAFETY.
[2025-03-26 07:54] VITALS: BP 104/58
--- NOTE | 2025-03-26 12:09 | NUR ---
IMPORTANT DISCHARGE INFORMATION PATIENT TO BE DISCHARGED TODAY. SHE HAS NUMEROUS APPOINTMENTS WITH [facility]. TRACY FERNANDEZ WILL BE PICKING HER UP AROUND 1PM. SHE WILL BE GOING TO HER FATHERS HOME LOCATED AT: [address] [facility] IN [facility]. FATHER'S NAME IS CARY AND HE CAN BE REACHED AT . ALL PARTIES VERBALIZE AN UNDERSTANDING. PHARMACY: [facility] IN [place] FAX # RESOURCES FOR FREE PHONE AND SERVICE AND [employer]OM[employer]
--- NOTE | 2025-03-26 12:58 | NUR ---
DISCHARGE PT A/O TO ALL; PLEASANT AND COOPERATIVE WITH CARE. SHE DENIES SI, HI, AVTH. PT EXCITED BUT NERVOUS TO DISCHARGE HOME TO HER DAD'S. PT'S MEDICATIONS FAXED TO [facility] IN [place] PER HER REQUEST. PT ON 180 COMMITMENT IN THE COMMUNITY AND EDUCATED ON FOLLOW UP APPOINTMENTS. PT HAD SOME QUESTIONS REGARDING HER FOLLOW UP APPOINTMENTS AND REQUIRED ADDITIONAL CLARIFICATION. PT ALSO PROVIDED WITH PHONE NUMBER FOR AKIRA BAUTISTA AT [facility] IN ORDER TO OBTAIN FURTHER CLARIFICATION. PT VERBALIZED UNDERSTANDING. PT'S BELONGINGS RETURNED TO HER AND PT LEFT THE UNIT AT 1306.
== END 2025-03-26 13:06 | disposition home or self-care (01) | DRG 885 ==
LOC: BHU 09:50
PROVIDERS: Internal Medicine; Psychiatry & Neurology Psychiatry; ADMIT Psychiatry & Neurology Psychiatry
DX: F33.3 Major depressive disorder, recurrent, severe with psychotic symptoms (principal); G89.29 Other chronic pain; M54.50 Low back pain, unspecified; F17.210 Nicotine dependence, cigarettes, uncomplicated; F12.90 Cannabis use, unspecified, uncomplicated; F10.10 Alcohol abuse, uncomplicated; Z91.013 Allergy to seafood
CPT/HCPCS: 36415; 80053; 80061; 82947; 83036; 85025; 96372; A9270; G0008; J0401